=== PATIENT | male | born 1975 | race Caucasian/White ===

== ENCOUNTER 2025-02-24 09:45 | Emergency (ER) | payer OTHER, SELFPAY ==
[2025-02-24] VITALS (11 sets, daily range): BP systolic 175–227; BP diastolic 91–122; PULSE 93–101; RESP 11–24; TEMP 37.7; O2SAT 88–98
--- NOTE | 2025-02-24 11:00 | RT.EKG_ITS ---
APPROVED REPORT Exam: Resting ECG Reason for Exam: shortness of breath Patient Location: E HR:97 bpm ECG Measurements Heart Rate 97 AXIS VT 202 P 50 QRSd 103 QRS -4 QT 375 T -8 QTc 478 Conclusion Sinus rhythm...normal P axis, V-rate 60- 99 Borderline prolonged VT interval...VT >197, V-rate 91-120
--- NOTE | 2025-02-24 11:00 | DI.CT_ITS ---
Exam(s) CT ABDOMEN PELVIS W EXAM: CT ABDOMEN PELVIS W CLINICAL HISTORY: hematuria. TECHNIQUE: Imaging Protocol: Axial computed tomography images with coronal and sagittal reformatted images were created and reviewed CONTRAST MATERIAL: Intravenous: Omnipaque-350 100cc Oral: None COMPARISON: CR XR CHEST 2V PA LATERAL from 02/24/2025 FINDINGS: VISUALIZED LUNG BASES: There is mild subpleural infiltrate in the most inferior aspect of the right l n[place]-posterior basal segment right lower lobe. No pleural effusions.. Visualized left lung base is c lear. ABDOMEN: There is no ascites. LIVER: Liver is enlarged and hypodense implying steatosis. Caudate lobe is prominent. There no disc rete focal hepatic lesions evident. No dilated intrahepatic ducts. GALLBLADDER/BILIARY: Gallbladder is distended measuring 13.5 cm length by 5 cm wide. But not edem[place] us and there is no pericholecystic fluid. There are no obvious radiopaque calculi in the distended g allbladder lumen. CBD diameter is upper normal. PANCREAS: No evidence of pancreatic mass nor dilatation of the pancreatic duct. SPLEEN: Spleen is enlarged. Craniocaudal measurement of the spleen is 14.8 cm. Splenic and portal v eins are patent. ADRENALS: There are no significant adrenal masses. KIDNEYS:No cysts evident. No solid renal masses. No calculi nor hydronephrosis.. ABDOMINAL AORTA: Abdominal aorta is not enlarged. LYMPH NODES:There is no retroperitoneal nor paraaortic adenopathy. ABDOMINAL WALL: There are bilateral containing inguinal hernias. No bowel loops therein. GI: There is no evidence of bowel obstruction, free air, nor abscess. PELVIS: GI: No evidence of appendicitis.No evidence of sigmoid diverticulitis. LYMPH NODES: There is no intrapelvic nor inguinal adenopathy. REPRODUCTIVE: Prostate size not enlarged. Seminal vesicles unremarkable. URINARY BLADDER: No calculi nor obvious masses evident OSSEOUS: No fractures and no significant osseous lesions. Benign hemangioma noted in the T10 vertebr al body. IMPRESSION: 1. There is mild subpleural infiltrate in the posterior basal segment of the right lower lobe. There are no pleural effusions. 2. Hepatic splenomegaly evident. Also no ascites. No obvious lymphadenopathy. Hepatic steatosis.. 3. Somewhat distended gallbladder. However, there no radiopaque gallstones, gallbladder wall edema, nor pericholecystic fluid and the CBD is not dilated. Called by myself to ER provider 02/24/2025 at 12:50 p.m. RADIATION DOSE DELIVERED: 1,240.37mGy.cm Total DLP DATA REPOSITORY: All CT scans at this facility are submitted to the National Radiology Data Registry (NRDR) Dose Index Registry (DIR) with the [employer] (ACR). RADIATION OPTIMIZATION: All CT scans at this facility use at least one of these dose optimization te chniques: automated exposure control; mA and/or kV adjustment per patient size (includes targeted exa ms where dose is matched to clinical indication); or iterative reconstruction.
--- NOTE | 2025-02-24 11:00 | DI.RAD_ITS ---
Exam(s) XR CHEST 2V PA LATERAL EXAM: XR CHEST 2V PA LATERAL CLINICAL HISTORY: shortness of breath. TECHNIQUE: 2D digital imaging was performed. COMPARISON: No exams were available for comparison FINDINGS: 2 views: There is cardiomegaly. Cardiothoracic ratio is 18/33 Mediastinum is not widened. Lungs are clear. No infiltrates nor pleural effusions. No Nino B lines. IMPRESSION: No acute pulmonary findings.Mild cardiomegaly. DATA REPOSITORY: RADIATION DOSE DELIVERED:
--- NOTE | 2025-02-24 11:02 | W.ED.GENAD ---
Discharge Plan Disposition Patient Disposition: Against Medical Advice Condition: Stable Discharge Details Clinical Impression: Alcoholic hepatitis, Elevated bilirubin, Increased thyroid stimulating hormone (TSH) level, Hepatomegaly with splenomegaly, not elsewhere classified, Anemia Primary Care Provider: Unknown,Unknown ED Provider: Jewel Geller Home Meds and New Rx's Prescriptions: No Action buprenorphine-naloxone [Suboxone] 4-1 mg film 1 film sublingual DAILY clonazepam [Klonopin] 1 mg tablet 0.5 mg PO DAILY Discharge Instructions Instructions: Jaundice in adults, Thyroid Stimulating Hormone Test, Bilirubin Blood Level, Effects of Alcohol on Your Health, Leaving Against Medical Advice Additional Instructions: You were seen in the emergency department for your multiple complaints of poor appetite, cramping, some shortness of breath, hematuria or dark urine and small amount of blood when defecating as well as stool changes. You have evidence of alcoholic hepatitis, anemia, you have abnormal thyroid levels and distended gallbladder without a gallstone seen stuck in your common bile duct though this does not rule out a non-radiopaque gallstone in the common bile duct, you stated you wanted to leave, I will set you up with a primary care referral they should contact you. We are not performing the studies that you refused today of an ultrasound of the right upper quadrant of the abdomen to look more in-depth at the gallbladder and common bile duct as well as possible surgical consult, you are leaving AGAINST MEDICAL ADVICE as you have a potentially serious or fatal condition that is undiagnosed, you have multiple laboratory abnormalities that need to be addressed, if you develop intractable nausea or vomiting, severe right upper quadrant abdominal pain with fever and any other emergent concerns you need to return to the ER, talk with your PCP once established with scheduling an endoscopy/colonoscopy. Referrals: Care Management [Provider Group] [facility] [Provider Group] [facility] [Provider Group] Discharge Data Discharge Date/Time-TO BE ENTERED AT DEPARTURE: 02/24/25 13:30 HPI General Date/Time Provider Initiated Documentation: 02/24/25 10:38. HPI Narrative: 50 year-old male presents to ED today by POV/ambulating with a constellation of complaints- has no PCP, feels as though he's having trouble breathing for one month, cramps in his legs, brief sharp rib pains, decreased appetite, hematuria or dark urine, and poor bowel movements for 1.5 months. Quality described as generalized symptoms, no radiation to active chest pain, shortness of breath or labored respirations, abdominal pain, fever, persistent vomiting, complete constipation or liquid stools, melena or hematochezia. Severity is described as mild to moderate. Palliating factors include nothing specific attempted. Provoking factors include nothing specific. Events leading up to the incident/Associated Symptoms: Patient takes no medications, his last doctors visit was years ago, just moved to [place]. Patient not anticoagulated. Related Data Home Medications ?Medication ?Instructions ?Recorded ?Confirmed buprenorphine 4 mg-naloxone 1 mg 1 film sublingual DAILY 02/24/25 02/24/25 sublingual film (Suboxone) clonazepam 1 mg tablet (Klonopin) 0.5 mg PO DAILY 02/24/25 02/24/25 General Stated Complaint: GenMedical FELISHA: 3 Review of Systems All systems reviewed & are unremarkable except as noted in HPI and below Exam Narrative Exam Narrative: GENERAL APPEARANCE: Well-nourished, non-toxic, awake and alert, atraumatic, no acute distress. SKIN: Warm, pink, dry, intact, without rashes/lesions/ulcerations. HEAD: Normocephalic, atraumatic, normal hair distribution for gender/age. EYES: Normal conjunctiva, no exudates on lids/lashes, scleral icterus/jaundice ENT: Nares patent, no circumoral cyanosis, no facial swelling NECK: Supple, trachea midline, painless cervical ROM. LUNGS/CHEST: Lungs CTA bilaterally- no rhonchi/rales/wheezes diffusely, non-labored respirations, normal A/P diameter, symmetrical expansion, no chest wall deformity HEART (CV/PV): Regular rate and rhythm without murmur, 2+ peripheral edema, non-pitting, no JVD. ABDOMEN: Soft, distended, no guarding, mild RUQ tenderness without Menjivar's sign. MSK: Normal ROM, no swelling/deformity to bilateral UEs or LEs, moving all extremities without weakness, no cyanosis, spine midline without tenderness, normal curvature. NEURO: Mental Status AAOx4 - alert to person, place, time, events No facial droop, no forehead involvement. Motor: No focal weakness - strength 5/5 in bilateral UEs and LEs, proximal and distal, symmetric. Sensory: sensation intact to light touch globally. Gait normal: patient ambulated without ataxia into ED room. PSYCH: euthymic, cooperative, pleasant, appropriate speech Course Vital Signs Vital signs: Vital Signs Temperature 37.7 C H 02/24/25 10:16 Pulse 96 H 02/24/25 10:16 Respiratory Rate 18 02/24/25 10:16 Blood Pressure 197/121 H 02/24/25 10:16 Pulse Oximetry 92 02/24/25 10:16 Temperature 37.7 C H 02/24/25 10:16 Temperature Source Oral 02/24/25 10:16 Pulse 96 H 02/24/25 10:16 Respiratory Rate 18 02/24/25 10:16 Blood Pressure 197/121 H 02/24/25 10:16 Pulse Oximetry 92 02/24/25 10:16 Oxygen Delivery Method Room Air 02/24/25 10:16 Oxygen Flow Rate 0 02/24/25 10:16 Pain Level 0 02/24/25 10:16 Medical Decision Making This dictation utilizes [id number] dictation software and may contain unedited grammatical errors. 50 year-old male presents to ED today by POV/ambulating with a constellation of complaints- has no PCP, feels as though he's having trouble breathing for one month, cramps in his legs, brief sharp rib pains, decreased appetite, hematuria or dark urine, and poor bowel movements for 1.5 months. Quality described as generalized symptoms, no radiation to active chest pain, shortness of breath or labored respirations, abdominal pain, fever, persistent vomiting, complete constipation or liquid stools, melena or hematochezia. Severity is described as mild to moderate. Palliating factors include nothing specific attempted. Provoking factors include nothing specific. Events leading up to the incident/Associated Symptoms: Patient takes no medications, his last doctors visit was years ago, just moved to [place]. Patients' medical history: Denies known medical history. Family and social history: Endorses regular alcohol use but denies heavy use but is hesitant to give exact amount, denies illicit substance use, no exercise regimen, eats normal diet. Pertinent exam findings / vital signs include patient appears mildly diaphoretic, has bloated abdomen without focal tenderness, benign cardiopulmonary exam, hypertensive. Differential / pathologies of concern include [ ]. Diagnostic studies of: - CBC, CMP, lactate, direct bilirubin, troponin, BNP, lipase, TSH, UA, chest x-ray, CT ABD/pelvis with contrast, EKG. - CBC shows anemia without priors to compare to, no leukocytosis, anisocytosis likely in the setting of alcoholism - CMP shows significant LFT derangement AST greater than LFT, bilirubin 3.8, reflexed to direct or conjugated bilirubin showing 2.5 which is likely in the setting of alcoholism versus obstructive pattern - Serial troponins negative - Lactate 1.8 - Magnesium within normal limits - UA shows no evidence of infection, does show bilirubin and proteinuria - Patient left AMA before the BNP could be redrawn - Lipase within normal limits - TSH is significantly elevated at 9.12 with normal T4 chest x-ray shows no acute findings besides mild cardiomegaly - CTA of the abdomen/pelvis shows some mild subpleural infiltrate in the posterior basal segment of the right lower lobe, hepatosplenomegaly, hepatic steatosis, somewhat distended gallbladder however no radiopaque gallstones gallbladder bladder wall edema, CBD nondilated - EKG shows sinus rhythm at 97 bpm with prolonged GA interval, P waves followed by narrow complex QRS with normal axis, no ST changes of ischemia, no significant T wave abnormalities, normal QT QTc Interventions of: -None, patient refused to stay for full evaluation, I counseled him on the need for likely ultrasound of the right upper quadrant, I counseled him on evidence of alcoholism affecting his liver, blood pressure very high stated that he needs to follow-up with his primary care, patient chose to leave AGAINST MEDICAL ADVICE despite not definitively ruling out a non-radiopaque gallbladder stone I did place him on the list for primary care follow-up, I had plan to start him on antihypertensive but he chose to leave prior to discussing this. ED Course/Assessment/Plan: 50-year-old male presents with a constellation of complaints, has been noncompliant with regular healthcare visits for a number of years, evidence for significant alcoholic hepatitis and other problems stemming from likely alcohol abuse, he has a distended gallbladder with possibility of non-radiopaque gallstone possible but no CBD dilatation, he has significantly elevated liver enzymes without elevation of lipase, significantly deranged TSH with a normal T4, no respiratory distress and cardiac workup is negative at this time, he was placed on a primary care follow-up list, he was adamant that he wanted to leave AGAINST MEDICAL ADVICE despite having evidence of significant hepatic pathology and possible gallbladder pathology, I did describe him the acuity of these problems and the possibility that he could worsen within hours causing significant abdominal surgical emergency and even , he chose to leave AGAINST MEDICAL ADVICE and wishes to follow-up with his primary care provider once I refer him to establish care, I was going to start him on amlodipine but he left before discussing this with me. Findings not consistent with acute coronary syndrome, severe electrolyte derangement, choledocholithiasis, biliary cholangitis, perforated viscus, hypoxemic respiratory failure. Disposition of Alcoholic hepatitis, elevated bilirubin, increased thyroid stimulating (TSH) level, hepatomegaly with splenomegaly not elsewhere classified, anemia. Patient verbalized understanding of the plan and return to ED criteria and engaged in shared decision making. Medical Records Medical records reviewed: Yes I reviewed the patient's medical records. Imaging Data Radiologic Study: Attestation: I personally reviewed and interpreted this imaging study as follows: Imaging: X-Ray Radiologist's impression: EXAM: XR CHEST 2V PA LATERAL CLINICAL HISTORY: shortness of breath. TECHNIQUE: 2D digital imaging was performed. COMPARISON: No exams were available for comparison FINDINGS: 2 views: There is cardiomegaly. Cardiothoracic ratio is 18/33 Mediastinum is not widened. Lungs are clear. No infiltrates nor pleural effusions. No Nino B lines. IMPRESSION: No acute pulmonary findings.Mild cardiomegaly. Radiologic Study #2: Attestation: I personally reviewed and interpreted this imaging study as follows: Imaging: CT Scan Radiologist's impression: EXAM: CT ABDOMEN PELVIS W CLINICAL HISTORY: hematuria. TECHNIQUE: Imaging Protocol: Axial computed tomography images with coronal and sagittal reformatted images were created and reviewed CONTRAST MATERIAL: Intravenous: Omnipaque-350 100cc Oral: None COMPARISON: CR XR CHEST 2V PA LATERAL from 02/24/2025 FINDINGS: VISUALIZED LUNG BASES: There is mild subpleural infiltrate in the most inferior aspect of the right lung-posterior basal segment right lower lobe. No pleural effusions.. Visualized left lung base is clear. ABDOMEN: There is no ascites. LIVER: Liver is enlarged and hypodense implying steatosis. Caudate lobe is prominent. There no discrete focal hepatic lesions evident. No dilated intrahepatic ducts. GALLBLADDER/BILIARY: Gallbladder is distended measuring 13.5 cm length by 5 cm wide. But not edematous and there is no pericholecystic fluid. There are no obvious radiopaque calculi in the distended gallbladder lumen. CBD diameter is upper normal. PANCREAS: No evidence of pancreatic mass nor dilatation of the pancreatic duct. SPLEEN: Spleen is enlarged. Craniocaudal measurement of the spleen is 14.8 cm. Splenic and portal veins are patent. ADRENALS: There are no significant adrenal masses. KIDNEYS:No cysts evident. No solid renal masses. No calculi nor hydronephrosis.. ABDOMINAL AORTA: Abdominal aorta is not enlarged. LYMPH NODES:There is no retroperitoneal nor paraaortic adenopathy. ABDOMINAL WALL: There are bilateral containing inguinal hernias. No bowel loops therein. GI: There is no evidence of bowel obstruction, free air, nor abscess. PELVIS: GI: No evidence of appendicitis.No evidence of sigmoid diverticulitis. LYMPH NODES: There is no intrapelvic nor inguinal adenopathy. REPRODUCTIVE: Prostate size not enlarged. Seminal vesicles unremarkable. URINARY BLADDER: No calculi nor obvious masses evident OSSEOUS: No fractures and no significant osseous lesions. Benign hemangioma noted in the T10 vertebral body. IMPRESSION: 1. There is mild subpleural infiltrate in the posterior basal segment of the right lower lobe. There are no pleural effusions. 2. Hepatic splenomegaly evident. Also no ascites. No obvious lymphadenopathy. Hepatic steatosis.. 3. Somewhat distended gallbladder. However, there no radiopaque gallstones, gallbladder wall edema, nor pericholecystic fluid and the CBD is not dilated. Lab Data Lab results reviewed: Yes I reviewed the patient's lab results. Labs: Laboratory Tests Range/Units 02/24/25 02/24/25 02/24/25 11:23 11:23 11:23 WBC (4.4-10.8) 10^3/uL 5.69 RBC (4.36-5.78) 10^6/uL 3.03 L Hgb (13.5-17.5) g/dL 10.1 L Hct (40.0-50.0) % 31.5 L MCV (80-95) fL 104 H MCH (27.0-33.0) pg 33.3 H MCHC (32.0-36.0) % 32.1 RDW (11.8-14.1) % 26.0 H Plt Count (130-400) 10^3/uL 145 MPV (8.0-11.0) fL 10.0 Immature Gran % % 2.5 Neutrophils % % 57.1 Lymphocytes % % 26.5 Monocytes % % 11.6 Eosinophils % % 0.7 Basophils % % 1.6 Nucleated RBC % (0.0-0.3) % 0.9 H Absolute Neutrophils (1.2-6.7) 10^3/uL 3.25 Absolute Lymphocytes (1.2-3.4) 10^3/uL 1.51 Absolute Monocytes (0.1-0.8) 10^3/uL 0.66 Absolute Eosinophils (0.0-0.7) 10^3/uL 0.04 Absolute Basophils (0.0-0.2) 10^3/uL 0.09 RBC Morphology See Below Anisocytosis 2+ VBG Lactate (<or=2.0) mmol/L 1.8 Sodium (136-145) mmol/L 138 Potassium (3.5-5.1) mmol/L 3.6 Chloride (98-107) mmol/L 98 Carbon Dioxide (21.0-32.0) mmol/L 31.3 Anion Gap (3-11) mmol/L 8.7 BUN (7-18) mg/dL 4 L Creatinine (0.70-1.30) mg/dL 1.1 Est GFR (CKD-EPI 2020) (mL/min/1.73m2) 81.78 Glucose (74-106) mg/dL 107 H Calcium (8.5-10.1) mg/dL 8.7 Magnesium (1.8-2.4) mg/dL 1.9 Cancelled Total Bilirubin (0.2-1.0) mg/dL 3.8 H Conjugated Bilirubin (0.0-0.2) mg/dL 2.5 H AST (15-37) U/L 158 H ALT (16-63) U/L 69 H Alkaline Phosphatase (46-116) U/L 129 H Troponin I (<or=76) ng/L 30 Cancelled NT-Pro-B Natriuret Pep Cancelled Total Protein (6.4-8.2) g/dL 7.9 Albumin (3.4-5.0) g/dL 3.0 L Lipase (<78) U/L 66 TSH (0.36-3.74) uIU/mL Free T4 (0.76-1.46) ng/dL Urine Color (Yellow) Urine Clarity (Clear) Urine pH (5-8) Ur Specific [place] (1.005-1.025) Urine Protein (Neg-Trace) mg/dL Urine Ketones (Negative) mg/dL Urine Blood (Negative) Urine Nitrite (Negative) Urine Bilirubin (Negative) Urine Urobilinogen (Up to 0.2) mg/dL Ur Leukocyte Esterase (Negative) Urine RBC (0-2) HPF Urine WBC (0-5) HPF Ur Epithelial Cells (Negative) HPF Urine Crystals (Negative) HPF Urine Bacteria (Negative) HPF Urine Casts (Negative) LPF Urine Mucus (Negative) Ur Culture Indicated? Urine Glucose (Negative) mg/dL Range/Units 02/24/25 02/24/25 02/24/25 11:23 11:23 11:28 WBC (4.4-10.8) 10^3/uL RBC (4.36-5.78) 10^6/uL Hgb (13.5-17.5) g/dL Hct (40.0-50.0) % MCV (80-95) fL MCH (27.0-33.0) pg MCHC (32.0-36.0) % RDW (11.8-14.1) % Plt Count (130-400) 10^3/uL MPV (8.0-11.0) fL Immature Gran % % Neutrophils % % Lymphocytes % % Monocytes % % Eosinophils % % Basophils % % Nucleated RBC % (0.0-0.3) % Absolute Neutrophils (1.2-6.7) 10^3/uL Absolute Lymphocytes (1.2-3.4) 10^3/uL Absolute Monocytes (0.1-0.8) 10^3/uL Absolute Eosinophils (0.0-0.7) 10^3/uL Absolute Basophils (0.0-0.2) 10^3/uL RBC Morphology Anisocytosis VBG Lactate (<or=2.0) mmol/L Sodium (136-145) mmol/L Potassium (3.5-5.1) mmol/L Chloride (98-107) mmol/L Carbon Dioxide (21.0-32.0) mmol/L Anion Gap (3-11) mmol/L BUN (7-18) mg/dL Creatinine (0.70-1.30) mg/dL Est GFR (CKD-EPI 2020) (mL/min/1.73m2) Glucose (74-106) mg/dL Calcium (8.5-10.1) mg/dL Magnesium (1.8-2.4) mg/dL Total Bilirubin (0.2-1.0) mg/dL Conjugated Bilirubin (0.0-0.2) mg/dL AST (15-37) U/L ALT (16-63) U/L Alkaline Phosphatase (46-116) U/L Troponin I (<or=76) ng/L NT-Pro-B Natriuret Pep Total Protein (6.4-8.2) g/dL Albumin (3.4-5.0) g/dL Lipase (<78) U/L Cancelled TSH (0.36-3.74) uIU/mL 9.12 H Cancelled Free T4 (0.76-1.46) ng/dL 1.17 Urine Color (Yellow) Yellow Urine Clarity (Clear) Clear Urine pH (5-8) 6.5 Ur Specific [place] (1.005-1.025) 1.015 Urine Protein (Neg-Trace) mg/dL >=300 H Urine Ketones (Negative) mg/dL Negative Urine Blood (Negative) Trace-intact H Urine Nitrite (Negative) Negative Urine Bilirubin (Negative) Small H Urine Urobilinogen (Up to 0.2) mg/dL 4.0 H Ur Leukocyte Esterase (Negative) Negative Urine RBC (0-2) HPF 3-5 H Urine WBC (0-5) HPF 0-2 Ur Epithelial Cells (Negative) HPF Few Urine Crystals (Negative) HPF Negative Urine Bacteria (Negative) HPF Few Urine Casts (Negative) LPF Negative Urine Mucus (Negative) Negative Ur Culture Indicated? No Urine Glucose (Negative) mg/dL Negative Range/Units 02/24/25 12:34 WBC (4.4-10.8) 10^3/uL RBC (4.36-5.78) 10^6/uL Hgb (13.5-17.5) g/dL Hct (40.0-50.0) % MCV (80-95) fL MCH (27.0-33.0) pg MCHC (32.0-36.0) % RDW (11.8-14.1) % Plt Count (130-400) 10^3/uL MPV (8.0-11.0) fL Immature Gran % % Neutrophils % % Lymphocytes % % Monocytes % % Eosinophils % % Basophils % % Nucleated RBC % (0.0-0.3) % Absolute Neutrophils (1.2-6.7) 10^3/uL Absolute Lymphocytes (1.2-3.4) 10^3/uL Absolute Monocytes (0.1-0.8) 10^3/uL Absolute Eosinophils (0.0-0.7) 10^3/uL Absolute Basophils (0.0-0.2) 10^3/uL RBC Morphology Anisocytosis VBG Lactate (<or=2.0) mmol/L Sodium (136-145) mmol/L Potassium (3.5-5.1) mmol/L Chloride (98-107) mmol/L Carbon Dioxide (21.0-32.0) mmol/L Anion Gap (3-11) mmol/L BUN (7-18) mg/dL Creatinine (0.70-1.30) mg/dL Est GFR (CKD-EPI 2020) (mL/min/1.73m2) Glucose (74-106) mg/dL Calcium (8.5-10.1) mg/dL Magnesium (1.8-2.4) mg/dL Total Bilirubin (0.2-1.0) mg/dL Conjugated Bilirubin (0.0-0.2) mg/dL AST (15-37) U/L ALT (16-63) U/L Alkaline Phosphatase (46-116) U/L Troponin I (<or=76) ng/L 26 NT-Pro-B Natriuret Pep Total Protein (6.4-8.2) g/dL Albumin (3.4-5.0) g/dL Lipase (<78) U/L TSH (0.36-3.74) uIU/mL Free T4 (0.76-1.46) ng/dL Urine Color (Yellow) Urine Clarity (Clear) Urine pH (5-8) Ur Specific [place] (1.005-1.025) Urine Protein (Neg-Trace) mg/dL Urine Ketones (Negative) mg/dL Urine Blood (Negative) Urine Nitrite (Negative) Urine Bilirubin (Negative) Urine Urobilinogen (Up to 0.2) mg/dL Ur Leukocyte Esterase (Negative) Urine RBC (0-2) HPF Urine WBC (0-5) HPF Ur Epithelial Cells (Negative) HPF Urine Crystals (Negative) HPF Urine Bacteria (Negative) HPF Urine Casts (Negative) LPF Urine Mucus (Negative) Ur Culture Indicated? Urine Glucose (Negative) mg/dL Quality:SDOH Health Related Social Needs: No Data to Display PFSH All Active Problems (Updated 02/24/25 @ 13:19 by HARRISON Munoz) Anemia (Chronic) Hepatomegaly with splenomegaly, not elsewhere classified (Acute) Increased thyroid stimulating hormone (TSH) level (Acute) Elevated bilirubin (Acute) Alcoholic hepatitis (Acute) Social History Smoking/Tobacco Use Status: Never Smoking risk assessment performed?: Yes Alcohol Intake: current Alcohol Intake frequency: 0-2 drinks per day Alcohol type: hard liquor Drug use: Occasionally Substance use type: marijuana Do you feel safe at home: Yes Do you feel safe in your relationship?: Yes
[2025-02-24 11:28] LABS: Lactate 1.8 mmol/L (<or=2.0)
[2025-02-24 11:30] LABS: Abs Immature Grans 0.14 10^3/uL (0.0-0.06); Absolute Basophil Count 0.09 10^3/uL (0.0-0.2); Absolute Eosinophil Count 0.04 10^3/uL (0.0-0.7); Absolute Lymphocyte Count 1.51 10^3/uL (1.2-3.4); Absolute Monocyte Count 0.66 10^3/uL (0.1-0.8); Absolute Neutrophil Count 3.25 10^3/uL (1.2-6.7); Basophils % 1.6 %; Eosinophils % 0.7 %; HCT 31.5 % (40.0-50.0); HGB 10.1 g/dL (13.5-17.5); Immature Grans % 2.5 %; Lymphocytes % 26.5 %; MCH 33.3 pg (27.0-33.0); MCHC 32.1 % (32.0-36.0); MCV 104 fL (80-95); Monocytes % 11.6 %; Neutrophils % 57.1 %; Nucleated RBC 0.9 % (0.0-0.3); Platelet Count 145 10^3/uL (130-400); RBC 3.03 10^6/uL (4.36-5.78); RDW-SD 95.2 fL; WBC 5.69 10^3/uL (4.4-10.8)
[2025-02-24 11:36] LABS: Bilirubin Small (Negative); Blood Trace-intact (Negative); Clarity Clear (Clear); Glucose Negative (Negative); Ketones Negative (Negative); Leukocyte Esterase Negative (Negative); Nitrite Negative (Negative); Specific Gravity 1.015 (1.005-1.025); pH 6.5 (5-8)
[2025-02-24 11:41] LABS: Bacteria Few HPF (Negative); Crystals Negative HPF (Negative); Epithelial Cells Few HPF (Negative); WBC 0-2 HPF (0-5)
[2025-02-24 11:42] LABS: C & S Indicated? No; Casts Negative LPF (Negative); Mucus Negative (Negative)
[2025-02-24 11:44] LABS: Anisocytosis 2+; Diff Comment Diff Reviewed
[2025-02-24 11:58] LABS: ALT 69 U/L (16-63); AST 158 U/L (15-37); Alkaline Phosphatase 129 U/L (46-116); Anion Gap 8.7 mmol/L (3-11); BUN 4 mg/dL (7-18); Bilirubin, Total 3.8 mg/dL (0.2-1.0); CO2 31.3 mmol/L (21.0-32.0); CREATININE 1.1 mg/dL (0.70-1.30); Calcium 8.7 mg/dL (8.5-10.1); Chloride 98 mmol/L (98-107); Estimated GFR 81.78 (mL/min/1.73m2); Glucose 107 mg/dL (74-106); Lipase 66 U/L (<78); Magnesium 1.9 mg/dL (1.8-2.4); Potassium 3.6 mmol/L (3.5-5.1); Sodium 138 mmol/L (136-145); TSH (W/Ref FT4) 9.12 uIU/mL (0.36-3.74); Total Protein 7.9 g/dL (6.4-8.2); Troponin I 30 ng/L (<or=76)
[2025-02-24] MEDS: Normal Saline - Diluent 50 ML VIAL IJ (12:15)
[2025-02-24 12:35] LABS: Bilirubin, Direct 2.5 mg/dL (0.0-0.2)
[2025-02-24 12:57] LABS: Troponin I 26 ng/L (<or=76)
[2025-02-24 12:59] LABS: FREE T4 1.17 ng/dL (0.76-1.46)
--- NOTE | 2025-02-28 10:55 | NUR.NOTE ---
[facility] called stating that the patient was seeking to be seen at their office as a new patient from the ED. I looked into this and I have sent a referral to the [employer] for new patient, and follow up for the multiple conditions and elevated labs. [facility] is aware of this and I placed a call to the patient and he is aware that the referral has been placed. Nursing Note:
--- NOTE | 2025-03-01 11:39 | NUR.NOTE ---
pt's chart was accessed to see where his referral was sent per his request by phone. Nursing Note:
--- NOTE | 2025-03-08 14:11 | NUR.NOTE ---
Patient called stating hard to get hold of [facility] and he wanted to know if his referral had been sent. The referral was sent and told him to keep trying to call them. Nursing Note:
== END 2025-02-24 13:30 | disposition left against medical advice (07) ==
PROVIDERS: Emergency Provider Physician Assistant
DX: R31.9 Hematuria, unspecified (principal); R16.2 Hepatomegaly with splenomegaly, not elsewhere classified; D64.9 Anemia, unspecified; K70.10 Alcoholic hepatitis without ascites; E80.6 Other disorders of bilirubin metabolism; R94.6 Abnormal results of thyroid function studies; Z53.29 Procedure and treatment not carried out because of patient's decision for other reasons
CPT/HCPCS: 36415; 80053; 83690; 93005; 99285; 71046; 74177; 81003; 81015; 82248; 83605; 83735; 83880; 84439; 84443; 84484; 85025; 93010; 99284

== ENCOUNTER 2025-04-05 15:27 | Outpatient (REF) | payer OTHER, SELFPAY ==
[2025-04-05 21:50] LABS: Hemoglobin A1C 4.8 % (<5.7)
[2025-04-05 22:16] LABS: ALT 95 U/L (16-63); AST 129 U/L (15-37); Albumin 3.8 g/dL (3.4-5.0); Alkaline Phosphatase 142 U/L (46-116); Anion Gap 2.9 mmol/L (3-11); BUN 9 mg/dL (7-18); Bilirubin, Total 0.9 mg/dL (0.2-1.0); CO2 35.1 mmol/L (21.0-32.0); CREATININE 0.8 mg/dL (0.70-1.30); Calcium 9.2 mg/dL (8.5-10.1); Calculated LDL 118 mg/dL (<100); Chloride 101 mmol/L (98-107); Cholesterol 185 mg/dL (<200); Estimated GFR 107.82 (mL/min/1.73m2); Folate 2.1 ng/mL (8.6-20.0); Glucose 104 mg/dL (74-106); HDL Cholesterol 52 mg/dL (>or=40); Potassium 4.2 mmol/L (3.5-5.1); Sodium 139 mmol/L (136-145); Total Protein 8.6 g/dL (6.4-8.2); Triglyceride 75 mg/dL (<150); Vitamin B12 396 pg/mL (193-986); Vitamin D 25 Total 40 ng/mL (30-100)
[2025-04-06 19:03] LABS: Thyroperoxidase Antibody <28 U/mL (<=60)
[2025-04-06 19:06] LABS: Thyroglobulin Antibody 18 U/mL (<=60)
[2025-04-06 19:47] LABS: Hepatitis A Antibody IgM Negative (Negative); Hepatitis B Core Antibody Negative (Negative); Hepatitis B surface Ag Negative (Negative); Hepatitis C Ab w Rflx HCV PCR Negative (Negative)
[2025-04-06 21:27] LABS: Hep A Total Ab w Rflx IgM Positive (Negative)
[2025-04-07 08:34] LABS: Hep A Antibody IgM Negative (Negative)
[2025-04-07 10:09] LABS: Lyme Ab w Rflx to Lyme Confirm Negative (Negative)
== END 2025-04-05 15:28 | disposition home or self-care (01) ==
LOC: NCHCN 15:27
PROVIDERS: Visit Provider Family Medicine
DX: R74.01 Elevation of levels of liver transaminase levels (principal); L03.312 Cellulitis of back [any part except buttock and flank]; F10.10 Alcohol abuse, uncomplicated; E03.9 Hypothyroidism, unspecified; E66.9 Obesity, unspecified
CPT/HCPCS: 80053; 80061; 82306; 86704; 86709; 86803; 87340; 82607; 82746; 83036; 86376; 86618; 86800